=== PATIENT | male | born 1945 | race Caucasian/White ===

== ENCOUNTER 2019-05-13 20:31 | Observation (INO) ==
[2019-05-13] MEDS ORDERED: ONDANSETRON INJ 2 MG/ML 2 ML VIAL IV STA (20:55)
[2019-05-13] MEDS ORDERED: MoRPHine SULFATE 4 MG/ML 1 ML CARP\\VIAL IV STA (20:55)
[2019-05-13 21:06] LABS: Basophils # (auto) 0.01 K/uL (0-0.2); Basophils % (auto) 0.1 %; Hematocrit (blood only) 39.7 % (42-52); Hemoglobin 13.4 g/dL (14.0-18.0); Immature Granulocytes # (auto) 0.02 K/uL (0.00-0.02); Immature Granulocytes % (auto) 0.3 %; Lymphocytes # (auto) 0.79 K/uL (1.2-3.4); Lymphocytes % (auto) 10.7 %; Mean Corpuscular Hemoglobin 29.1 pg (25-34); Mean Corpuscular Hgb Conc 33.8 g/dL (32-36); Mean Corpuscular Volume 86.1 fL (80-100); Mean Platelet Volume 10.8 fL (7.4-10.4); Monocytes # (auto) 0.32 K/uL (0.11-0.59); Monocytes % (auto) 4.3 %; Neutrophils # (auto) 6.23 K/uL (1.4-6.5); Neutrophils % (auto) 84.6 %; Platelet Count 103 K/uL (130-400); RDW Coefficient of Variation 15.3 % (11.5-14.5); RDW Standard Deviation 48.2 fL (36.4-46.3); Red Blood Count 4.61 M/uL (4.7-6.1); White Blood Count 7.37 K/uL (4.8-10.8)
[2019-05-13 21:13] LABS: Partial Thromboplastin Ratio 0.9; Partial Thromboplastin Time 24.3 Seconds (21.0-31.0)
[2019-05-13 21:14] LABS: Albumin Level 3.7 gm/dl (3.4-5.0); BUN Creatinine Ratio 14.7 (10-20); Calcium 9.1 mg/dl (8.5-10.1); Est GFR (African American) 74.8; Est GFR (Non-African American) 64.6; Potassium 4.4 mmol/L (3.5-5.1)
--- NOTE | 2019-05-13 21:14 | XRay Report ---
XR chest 1V portable CLINICAL HISTORY: Chest pain. COMPARISON STUDY: Chest radiograph November 26, 2018. FINDINGS: Lung volumes are normal. There is no pneumothorax or pleural effusion. 1.8 cm right suprahi lar mediastinal density likely reflects the azygos vein. Cardiac size is normal. Interstitial thicken ing is unchanged. There is probable underlying emphysema. There is no consolidation or evidence for p ulmonary edema. IMPRESSION: 1. No acute findings. 2. 1.8 cm right suprahilar mediastinal density which likely reflects a normal azygos vein. However, f ollow-up PA and lateral radiographs of the chest are recommended. 3. Interstitial thickening. This may reflect a combination of emphysema and pulmonary fibrosis. ACT 112: Negative or not required by law. Electronically signed by: Abelardo Dumont M.D. 05/13/2019 9:12 PM
[2019-05-13 21:18] LABS: Albumin Globulin Ratio 0.9 (0.9-2); Bilirubin,Total 0.8 mg/dl (0.2-1); Globulin 3.9 gm/dl (2.5-4.0); Total Protein 7.6 gm/dl (6.4-8.2); Troponin I 0.036 ng/ml (0-0.045)
--- NOTE | 2019-05-13 21:19 | CT Scan Report ---
CT OF THE HEAD WITHOUT CONTRAST CLINICAL HISTORY: headache COMPARISON STUDY: Head CT November 26, 2018. CT DOSE: 537.48 mGy.cm TECHNIQUE: Helical axial images of the head were obtained without IV contrast. Automated exposure con trol was utilized for the study. A dose lowering technique was utilized adhering to the principles o f ALARA. FINDINGS: No acute intracranial hemorrhage, midline shift or mass effect is present. The ventricular system is unremarkable. The basilar cisterns are patent. No extra-axial collections are present. Ther e are no findings to suggest acute dural sinus thrombosis or acute territorial infarct. No significan t calvarial abnormalities are present. Trace fluid within bilateral mastoid air cells is unchanged. A n old left frontal lobe infarct is again noted. IMPRESSION: No acute intracranial findings. No change since previous exam. ACT 112: Negative or not required by law. Electronically signed by: Abelardo Dumont M.D. 05/13/2019 9:18 PM
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
[2019-05-13] MEDS ORDERED: MoRPHine SULFATE 2 MG/ML CARP IV STA (23:27)
[2019-05-13] MEDS ORDERED: KETOROLAC TROMETHAMINE 15 MG/ML VIAL IV ONE (23:31)
[2019-05-13] MEDS ORDERED: KETOROLAC TROMETHAMINE 15 MG/ML VIAL ONE (23:33)
[2019-05-13] MEDS ORDERED: HydrALAZINE HCL 20 MG/ML VIAL IV PRN (23:36)
[2019-05-13] MEDS ORDERED: HydrALAZINE HCL 20 MG/ML VIAL ONE (23:38)
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
[2019-05-14] MEDS ORDERED: AMLODIPINE BESYLATE 5 MG TAB ONE (00:26)
[2019-05-14] MEDS ORDERED: AMLODIPINE BESYLATE 5 MG TAB PO STA (00:27)
[2019-05-14] MEDS ORDERED: ALUMINUM/MAGNESIUM SUSP 30 ML UDC PO PRN (01:28)
[2019-05-14] MEDS ORDERED: ALBUTEROL HFA 8 GM INHALER INH PRN (01:28)
[2019-05-14] MEDS ORDERED: MAGNESIUM HYDROXIDE SUSP 30 ML UDC PO PRN (01:28)
[2019-05-14] MEDS: POLYETHYLENE (MIRALAX) 17 GM PACK PO SCH ×3 (02:51→20:40)
[2019-05-14] MEDS: ONDANSETRON INJ 2 MG/ML 2 ML VIAL IV PRN ×3 (02:51→16:30)
[2019-05-14] MEDS: levETIRAcetam 500 MG TAB PO SCH ×3 (02:51→20:40)
[2019-05-14] MEDS ORDERED: METOPROLOL TARTRATE 50 MG TAB PO STA (04:07)
[2019-05-14] MEDS: NITROGLYCERIN 2% OINTMENT 30GM TUBE EXT SCH ×3 (04:54→16:30)
[2019-05-14 06:00] LABS: Basophils # (auto) 0.01 K/uL (0-0.2); Basophils % (auto) 0.1 %; Hematocrit (blood only) 39.5 % (42-52); Hemoglobin 13.2 g/dL (14.0-18.0); Immature Granulocytes # (auto) 0.03 K/uL (0.00-0.02); Immature Granulocytes % (auto) 0.3 %; Lymphocytes # (auto) 0.81 K/uL (1.2-3.4); Lymphocytes % (auto) 8.4 %; Mean Corpuscular Hemoglobin 29.4 pg (25-34); Mean Corpuscular Hgb Conc 33.4 g/dL (32-36); Mean Platelet Volume 10.5 fL (7.4-10.4); Monocytes # (auto) 0.53 K/uL (0.11-0.59); Monocytes % (auto) 5.5 %; Neutrophils # (auto) 8.29 K/uL (1.4-6.5); Neutrophils % (auto) 85.7 %; Platelet Count 111 K/uL (130-400); RDW Coefficient of Variation 15.3 % (11.5-14.5); RDW Standard Deviation 49.3 fL (36.4-46.3); Red Blood Count 4.49 M/uL (4.7-6.1); White Blood Count 9.67 K/uL (4.8-10.8)
[2019-05-14 06:10] LABS: INR 1.1 (0.9-1.1); Partial Thromboplastin Time 25.8 Seconds (21.0-31.0); Prothrombin Time 11.1 Seconds (9.0-12.0)
[2019-05-14 06:21] LABS: Albumin Level 3.5 gm/dl (3.4-5.0); BUN Creatinine Ratio 18.3 (10-20); Creatinine Clr Calc Pharmacy 56.1 ml/min; Est GFR (African American) 67.6; Est GFR (Non-African American) 58.3; Potassium 4.6 mmol/L (3.5-5.1)
[2019-05-14 06:24] LABS: Albumin Globulin Ratio 0.9 (0.9-2); Bilirubin,Total 0.6 mg/dl (0.2-1); Total Protein 7.5 gm/dl (6.4-8.2)
--- NOTE | 2019-05-14 06:51 | CT Scan Report ---
CT chest wo con CT DOSE: 288.07 mGy.cm CLINICAL HISTORY: 73 years-old Male with eval for infection. Acute chest pain with shortness of shelley th TECHNIQUE: Multiaxial CT images of the chest were performed without contrast. A dose lowering techni que was utilized adhering to the principles of ALARA. COMPARISON: Chest radiograph of same day, CTA of the neck 11/26/2018 FINDINGS: Heart is upper limits of normal in size. Trace pericardial effusion. Coronary arterial and thoracic a ortic calcifications are noted. There is no thoracic aortic aneurysm. Ascending thoracic aorta measur es 3.8 x 3.9 cm. Mild dilation of the main pulmonary artery, 3.3 cm transversely may correlate with p ulmonary arterial hypertension in the appropriate clinical setting. Nonspecific mildly enlarged subca rinal lymph nodes measure up to 10 mm. There is no pneumothorax or pleural effusion. Severe emphysema with bilateral mostly subpleural reticulation suggestive of chronic scarring. Bilateral bronchial wa ll thickening suggests bronchitis. There are a few scattered calcified granulomata noted. There are a few scattered calcified granulomata noted throughout the lungs. No suprahilar mass or nodule to annie elate with the radiographic findings. A normal azygos vein is noted within this distribution. Mild tr action bronchiectasis of the lung bases. 10 mm groundglass nodular opacity of the left lung apex, debra ge 61 series 4 is new from comparison. Central airways appear patent. Mild tracheobronchial secretion s. Mild wall thickening of the mid and distal esophagus with distal esophageal and gastroesophageal vari gala. Cirrhotic morphology of the liver. Splenomegaly. Perisplenic varices are also noted along with c holelithiasis. Gynecomastia. Soft tissues are unremarkable. Degenerative changes of the shoulders and spine. No suspicious osseous lesions. IMPRESSION: 1. Severe emphysema with multifocal mostly subpleural predominant reticular opacities suggestive of f ibrotic scarring. Mild associated traction bronchiectasis of the lung bases. 2. 10 mm groundglass nodular opacity of the apical posterior segment left upper lobe, new from 019. Follow-up guidelines provided below. 3. Cirrhotic morphology of the liver with stigmata of portal venous hypertension. 4. No airspace consolidation identified to suggest pneumonia. 5. Cholelithiasis. 6. Mild tracheobronchial secretions. ACT 112: Negative or not required by law. Please refer to below summary of Fleischner criteria recommendations for follow-up of incidental CT n odules (Elgin Ojeda, Guidelines for management of small pulmonary nodules detected on CT scans: A sta tement from the Fleischner Society, Radiology 237: [phone].) Note: newly detected indeterminate nodule in persons 35 years of age or older. * Low risk patients: minimal or absent history of smoking and/or other known risk factors * high risk patients: history of smoking or of other known risk factors (e.g. first degree relative with lung cancer, or exposure to asbestos, radon, uranium) * if a nodule up to 8 mm is partly solid or is ground glass further follow-up is required after 24 m onths to exclude possible slow growing adenocarcinoma (ISAI) SUBSOLID NODULES Solitary pure ground-glass nodule * nodule size <6 mm - no CT follow-up required * nodule size >=6 mm - follow-up CT at 6-12 months, then every 2 years until 5 years The above report was generated using voice recognition software. It may contain grammatical, syntax o r spelling errors. Electronically signed by: Justo Oliveira M.D. 05/14/2019 6:50 AM
[2019-05-14] MEDS: METOPROLOL TARTRATE 1 MG/ML VIAL IV SCH ×5 (06:59→20:20)
[2019-05-14] MEDS: ACETAMINOPHEN 325 MG TAB PO PRN ×2 (07:16→20:48)
[2019-05-14] MEDS ORDERED: PNEUMOCOCCAL Polysaccharide Vaccine 25mcg/0.5mL vial/Syr IM ONE (08:00)
[2019-05-14] MEDS: METOPROLOL TARTRATE 50 MG TAB PO SCH ×2 (08:21→20:40)
[2019-05-14] MEDS: FAMOTIDINE 20 MG TAB PO SCH ×2 (08:21→20:39)
[2019-05-14] MEDS: ASPIRIN 81 MG ECTAB PO SCH (08:22)
[2019-05-14] MEDS: SERTRALINE HCL 100 MG TABLET PO SCH (08:22)
[2019-05-14] MEDS ORDERED: VITAMIN E TOP SCH (09:00)
[2019-05-14] MEDS ORDERED: lisinopriL 10 MG TAB PO SCH (09:00)
[2019-05-14] MEDS: HydrALAZINE HCL 20 MG/ML VIAL IV PRN ×2 (09:52→16:32)
[2019-05-14 12:25] LABS: Hepatitis B Surface Antigen Neg (Neg)
[2019-05-14 12:53] LABS: Hepatitis C IgG 13Yrs+Old_Rflx Neg (Neg)
--- NOTE | 2019-05-14 14:22 | Magnetic Resonance Report ---
MR brain wo con HISTORY: 73 years-old Male headache, nausea, ?PRES acute headache with nausea and history of remote trauma. Acute dizziness with blurry vision COMPARISON: Head CT 05/13/2019 TECHNIQUE: Multiplanar multisequence MRI of the brain was obtained without the use of IV contrast. FINDINGS: Tree Tapping Laborer localizer images demonstrate no gross extracranial abnormality. No restricted diffusion to sugg est acute or subacute infarction. Midline structures including the corpus callosum, brainstem, optic chiasm, pituitary and pineal glands appear unremarkable the sagittal T1 series. No cerebellar tonsill ar herniation. Degenerative changes of the cervical spine incidentally noted. No acute intracranial hemorrhage, midline shift, or extra-axial collection, hydrocephalus or intracra nial mass. Mild age-related involutional changes. Moderate patchy T2/FLAIR hyperintensities of the wh ite matter suggest chronic microvascular ischemic disease. Encephalomalacia and gliosis of the left f rontal lobe compatible with area of remote infarct. There are suggested areas of additional small rem ote infarctions noted about the peterson radiata and periventricular distributions. Flow voids at the l evel of the skull base appear patent. Small left and moderate right mastoid effusions. Moderate mucos al thickening of the maxillary sinuses with small left maxillary air-fluid level. Mild mucosal thicke tasha of the lateral terminates and ethmoid air cells. Orbits, skull and soft tissues are unremarkable . IMPRESSION: 1. No acute intracranial abnormality, specifically no acute or subacute infarction. 2. Age-related involutional changes with moderate T2/FLAIR hyperintensities suggestive of chronic allison rovascular ischemic disease. 3. Encephalomalacia and gliosis of the left frontal lobe from remote infarct. 4. Paranasal sinus disease as above. ACT 112: Negative or not required by law. The above report was generated using voice recognition software. It may contain grammatical, syntax o r spelling errors. Electronically signed by: Justo Oliveira M.D. 05/14/2019 2:21 PM
[2019-05-14] MEDS ORDERED: AMLODIPINE BESYLATE 5 MG TAB PO ONE (17:00)
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
[2019-05-14] MEDS: ATORVASTATIN 40 MG TAB PO SCH (20:39)
[2019-05-14] MEDS: PRAZOSIN HCL 1 MG CAP PO SCH (20:39)
[2019-05-14] MEDS ORDERED: lisinopriL 10 MG TAB PO ONE (21:00)
[2019-05-15] MEDS: NITROGLYCERIN 2% OINTMENT 30GM TUBE EXT SCH ×2 (00:20→03:28)
[2019-05-15] MEDS: METOPROLOL TARTRATE 1 MG/ML VIAL IV SCH ×2 (00:20→03:28)
[2019-05-15 03:52] LABS: Hepatitis A Antibody IgM NON-REACTIVE (NON-REACTIVE); Hepatitis B Core Antibody IgM NON-REACTIVE (NON-REACTIVE)
[2019-05-15] MEDS ORDERED: METOPROLOL TARTRATE 1 MG/ML VIAL IV PRN (05:15)
[2019-05-15 07:36] LABS: Hematocrit (blood only) 35.8 % (42-52); Hemoglobin 11.8 g/dL (14.0-18.0); RDW Coefficient of Variation 15.8 % (11.5-14.5); RDW Standard Deviation 50.1 fL (36.4-46.3); Red Blood Count 4.07 M/uL (4.7-6.1); White Blood Count 6.33 K/uL (4.8-10.8)
[2019-05-15 07:48] LABS: INR 1.1 (0.9-1.1); Prothrombin Time 11.1 Seconds (9.0-12.0)
[2019-05-15 08:04] LABS: Basophils # (auto) 0.01 K/uL (0-0.2); Basophils % (auto) 0.2 %; Immature Granulocytes # (auto) 0.01 K/uL (0.00-0.02); Immature Granulocytes % (auto) 0.2 %; Lymphocytes # (auto) 1.15 K/uL (1.2-3.4); Lymphocytes % (auto) 18.2 %; Mean Platelet Volume 9.8 fL (7.4-10.4); Monocytes # (auto) 0.42 K/uL (0.11-0.59); Monocytes % (auto) 6.6 %; Neutrophils # (auto) 4.74 K/uL (1.4-6.5); Neutrophils % (auto) 74.8 %; Platelet Count 87 K/uL (130-400); Platelet Estimate Decreased (Normal)
[2019-05-15 08:07] LABS: Albumin Level 3.3 gm/dl (3.4-5.0); BUN Creatinine Ratio 22.2 (10-20); Calcium 8.8 mg/dl (8.5-10.1); Est GFR (African American) 43.5; Est GFR (Non-African American) 37.5; Potassium 4.1 mmol/L (3.5-5.1)
[2019-05-15 08:10] LABS: Bilirubin,Total 0.6 mg/dl (0.2-1); Globulin 3.4 gm/dl (2.5-4.0); Total Protein 6.7 gm/dl (6.4-8.2)
[2019-05-15] MEDS: levETIRAcetam 500 MG TAB PO SCH ×2 (08:13→21:35)
[2019-05-15] MEDS: FAMOTIDINE 20 MG TAB PO SCH ×2 (08:13→21:38)
[2019-05-15] MEDS: SERTRALINE HCL 100 MG TABLET PO SCH (08:13)
[2019-05-15] MEDS: lisinopriL 20 MG TAB PO SCH (08:14)
[2019-05-15] MEDS: ASPIRIN 81 MG ECTAB PO SCH (08:14)
[2019-05-15] MEDS: POLYETHYLENE (MIRALAX) 17 GM PACK PO SCH ×2 (08:15→21:36)
[2019-05-15] MEDS ORDERED: PROPRANOLOL HCL 10 MG TAB PO SCH (09:00)
[2019-05-15] MEDS ORDERED: AMLODIPINE BESYLATE 5 MG TAB PO SCH ×3 (09:00→21:00)
[2019-05-15] MEDS ORDERED: LACTATED RINGER'S 1,000 ML IV ONE ×2 (10:03→19:31)
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
[2019-05-15] MEDS: HydrALAZINE HCL 20 MG/ML VIAL IV PRN (16:50)
[2019-05-15 17:32] LABS: BUN Creatinine Ratio 25.6 (10-20); Calcium 8.4 mg/dl (8.5-10.1); Creatinine Clr Calc Pharmacy 46.9 ml/min; Est GFR (African American) 54.5; Potassium 4.1 mmol/L (3.5-5.1)
[2019-05-15] MEDS ORDERED: ENOXAPARIN INJ 40 MG/0.4 ML SYR SQ SCH (21:00)
[2019-05-15] MEDS: AMLODIPINE BESYLATE 5 MG TAB PO SCH (21:35)
[2019-05-15] MEDS: PRAZOSIN HCL 1 MG CAP PO SCH (21:35)
[2019-05-15] MEDS: ATORVASTATIN 40 MG TAB PO SCH (21:37)
[2019-05-15] MEDS: FLUTICASONE HFA 220 MCG INHALER INH SCH (22:18)
[2019-05-16 06:49] LABS: Hematocrit (blood only) 36.5 % (42-52); Mean Corpuscular Hemoglobin 28.9 pg (25-34); Mean Corpuscular Hgb Conc 32.9 g/dL (32-36); RDW Coefficient of Variation 15.6 % (11.5-14.5); RDW Standard Deviation 49.7 fL (36.4-46.3); Red Blood Count 4.15 M/uL (4.7-6.1); White Blood Count 4.15 K/uL (4.8-10.8)
[2019-05-16 06:54] LABS: Mean Platelet Volume 10.1 fL (7.4-10.4); Platelet Count 78 K/uL (130-400)
[2019-05-16 07:14] LABS: Eosinophils # (auto) 0.03 K/uL (0-0.5); Eosinophils % (auto) 0.7 %; Immature Granulocytes # (auto) 0.01 K/uL (0.00-0.02); Immature Granulocytes % (auto) 0.2 %; Lymphocytes # (auto) 1.03 K/uL (1.2-3.4); Lymphocytes % (auto) 24.8 %; Monocytes # (auto) 0.33 K/uL (0.11-0.59); Neutrophils # (auto) 2.75 K/uL (1.4-6.5); Neutrophils % (auto) 66.3 %
[2019-05-16 07:43] LABS: Albumin Level 2.9 gm/dl (3.4-5.0); BUN Creatinine Ratio 23.7 (10-20); Calcium 8.3 mg/dl (8.5-10.1); Creatinine Clr Calc Pharmacy 51.1 ml/min; Est GFR (African American) 60.4; Est GFR (Non-African American) 52.1; Potassium 4.6 mmol/L (3.5-5.1)
[2019-05-16 07:46] LABS: Albumin Globulin Ratio 0.9 (0.9-2); Bilirubin,Total 0.4 mg/dl (0.2-1); Globulin 3.3 gm/dl (2.5-4.0); Total Protein 6.2 gm/dl (6.4-8.2)
[2019-05-16] MEDS: FLUTICASONE HFA 220 MCG INHALER INH SCH (08:22)
[2019-05-16] MEDS: POLYETHYLENE (MIRALAX) 17 GM PACK PO SCH (08:23)
[2019-05-16] MEDS: SERTRALINE HCL 100 MG TABLET PO SCH (08:23)
[2019-05-16] MEDS: FAMOTIDINE 20 MG TAB PO SCH (08:23)
[2019-05-16] MEDS: AMLODIPINE BESYLATE 5 MG TAB PO SCH (08:23)
[2019-05-16] MEDS: levETIRAcetam 500 MG TAB PO SCH (08:24)
[2019-05-16] MEDS: ASPIRIN 81 MG ECTAB PO SCH (08:24)
[2019-05-16] MEDS: lisinopriL 20 MG TAB PO SCH (08:24)
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
[2019-05-16] MEDS ORDERED: AMLODIPINE BESYLATE 5 MG TAB PO ONE (15:30)
== END 2019-05-16 17:42 | DRG 281 ==
LOC: 2S 20:31 → ED 20:31 → SUATTDRO 23:50 → 2S 05-14 01:25